=== PATIENT | male | born 1985 | race Two or more races ===

== ENCOUNTER 2017-08-25 07:51 | Day surgery (SDC) | payer OTHER ==
[~2017-08-25 07:51] MED LIST: HYDROmorphone 2 MG/ML VIAL IV; LIDOCAINE 1% PF 2 ML VIAL. ID; MORPHINE SULFATE 2 MG/ML DISP.SYRIN. IV; PROCHLORPERAZINE 10 MG/2 ML VIAL. IV; fentaNYL PF VIAL 100 MCG/2 ML VIAL IV
[2017-08-25] MEDS: IV RINGERS,LACTATED 1000ML 1,000 ML IV (08:17)
[2017-08-25] MEDS ORDERED: PROPOFOL 20 ML IV (08:43)
[2017-08-25] MEDS ORDERED: LIDOCAINE 2% PF Vial for OR 5 ML VIAL. (08:43)
[2017-08-25] MEDS ORDERED: fentaNYL PF VIAL 100 MCG/2 ML VIAL (08:43)
[2017-08-25] MEDS ORDERED: SEVOFLURANE 31 TO 60 MINUTES. IH (08:43)
[2017-08-25] MEDS ORDERED: ROCURONIUM 50 MG/5 ML VIAL. (08:54)
[2017-08-25] MEDS ORDERED: BUPIVAC MPF-EPI 0.5%-1:200000 10 ML VIAL. (09:12)
[2017-08-25] MEDS ORDERED: GELATIN SPONGE SIZE 100. (09:14)
[2017-08-25] MEDS: BUPIVACAINE 0.5% 50 ML VIAL. (09:46)
[2017-08-25] MEDS ORDERED: GLYCOPYRROLATE 1 MG/5 ML VIAL. (10:03)
[2017-08-25] MEDS: ONDANSETRON PF 4 MG/2 ML VIAL. IV (10:26)
[2017-08-25] MEDS: fentaNYL PF VIAL 100 MCG/2 ML VIAL IV ×2 (10:27→10:42)
[2017-08-25] MEDS ORDERED: oxyCODONE/APAP 5/325 1 TAB TABLET (10:35)
[2017-08-25] MEDS: oxyCODONE/APAP 5/325 1 TAB TABLET PO (10:42)
== END 2017-08-25 11:28 | disposition home or self-care (01) ==
LOC: SURG 07:51
DX: K60.3 Anal fistula (principal); Z72.89 Other problems related to lifestyle
CPT/HCPCS: 46270; 88304; J0690; J2405; J2704; J3010; J3490